=== PATIENT | female | born 1985 | race Caucasian/White ===

== ENCOUNTER 2018-03-25 18:17 | Observation (INO) | payer MEDICAID ==
[~2018-03-25] VITALS: Ht 154.9 cm; Wt 78.0 kg
[2018-03-25] MEDS ORDERED: PNV1TABL76 MT (18:41)
[2018-03-25] MEDS ORDERED: FOLI-43 MT (18:41)
[2018-03-25] MEDS ORDERED: ONDANSETRON HCL 4MG/2ML VIAL IV NR (19:50)
[2018-03-25] MEDS ORDERED: LACTATED RINGERS 1,000 ML IV SCH (20:00)
== END 2018-03-25 20:47 | disposition home or self-care (01) ==
LOC: L&D 18:17
PROVIDERS: ADMIT Obstetrics & Gynecology; ATTEND Obstetrics & Gynecology
DX: O21.2 Late vomiting of pregnancy (principal); O26.892 Other specified pregnancy related conditions, second trimester; R10.9 Unspecified abdominal pain; Z3A.21 21 weeks gestation of pregnancy
CPT/HCPCS: 96374; G0378; J2405; J7120; 96360; 96365; 99281

== ENCOUNTER 2018-07-31 09:58 | Observation (INO) | payer OTHER ==
[~2018-07-31 09:58] MED LIST: FERR325T6 MT; FOLI-43 MT; PNV1TABL76 MT
== END 2018-07-31 11:00 | disposition left against medical advice (07) ==
LOC: L&D 09:58
PROVIDERS: ADMIT Obstetrics & Gynecology; ATTEND Obstetrics & Gynecology
DX: O62.9 Abnormality of forces of labor, unspecified (principal); O48.0 Post-term pregnancy; Z3A.40 40 weeks gestation of pregnancy
CPT/HCPCS: 99281; G0378; J7120

== ENCOUNTER 2018-08-01 02:27 | Inpatient (IN) | payer OTHER ==
[~2018-08-01] VITALS: Ht 154.9 cm; Wt 104.3 kg
[2018-08-01] MEDS ORDERED: DEXT 5%/LR + PITOCIN 20UNITS/L 1,000 ML IV SCH ×2 (02:51→11:15)
[2018-08-01] MEDS ORDERED: METHYLERGONOVINE MALEATE 0.2 MG/ML IM PRN (03:00)
[2018-08-01] MEDS ORDERED: TERBUTALINE SULFATE 1MG/ML VIAL SUBCUT ONE (03:00)
[2018-08-01] MEDS ORDERED: NALOXONE HCL 0.4 MG/ML 1ML VIAL IM PRN (03:00)
[2018-08-01] MEDS: LACTATED RINGERS 1,000 ML IV SCH ×3 (03:10→08:22)
[2018-08-01 03:35] LABS: CLARITY URINE CLOUDY (CLEAR); COLOR URINE YELLOW (YELLOW); KETONES URINE NEGATIVE (NEGATIVE); LEUKOCYTE ESTERASE URINE 2+ (NEGATIVE); NITRITE URINE NEGATIVE (NEGATIVE); OCCULT BLOOD URINE 1+ (NEGATIVE); PROTEIN URINE TRACE (NEGATIVE); SPECIFIC GRAVITY URINE 1.018 (1.005-1.030)
[2018-08-01 03:36] LABS: BASOPHILS % 0.2 % (0.0-2.0); EOSINOPHILS % 0.4 % (0.0-5.0); HEMATOCRIT. 33.1 % (36.0-48.0); HEMOGLOBIN. 10.8 g/dL (12.0-16.0); LYMPHOCYTES % 15.5 % (20.0-50.0); MEAN CORPUSCULAR HEMOGLOBIN 29.4 pg (28.0-32.0); MEAN CORPUSCULAR VOLUME 90.1 fL (81.0-99.0); MEAN PLATELET VOLUME 10.9 fl (7.4-10.4); MONOCYTES % 5.1 % (2.0-8.0); NEUTROPHILS % 78.8 % (40.0-76.0); PLATELET 199 x1000/uL (130-400); RED BLOOD CELL COUNT 3.67 mill/uL (4.2-5.4); RED CELL DISTRIBUTION WIDTH 15.7 % (11.6-14.6)
[2018-08-01 03:43] LABS: PROTHROMBIN TIME 9.6 sec (9.1-11.1)
[2018-08-01 03:52] LABS: *AMPHETAMINES SCREEN URINE NEGATIVE (NEGATIVE); *BARBITURATES SCREEN URINE NEGATIVE (NEGATIVE); *BENZODIAZEPINES SCREEN URINE NEGATIVE (NEGATIVE); *COCAINE SCREEN URINE NEGATIVE (NEGATIVE); METHADONE URINE SCREEN NEGATIVE (NEGATIVE)
[2018-08-01 03:53] LABS: CANNABINOID URINE SCREEN NEGATIVE (NEGATIVE); OPIATES URINE SCREEN NEGATIVE (NEGATIVE); PHENCYCLIDINE URINE SCREEN NEGATIVE (NEGATIVE)
[2018-08-01] MEDS: TERBUTALINE SULFATE 1MG/ML VIAL SUBCUT PRN ×2 (03:54→04:24)
[2018-08-01 07:01] LABS: HEPATITIS B SURFACE ANTIGEN NEGATIVE; RUBELLA IGG 213.8 IU/mL (4.99-10)
[2018-08-01] MEDS ORDERED: CITRIC ACID/SODIUM CITRATE SOLN 30ML UDC PO NR (07:30)
[2018-08-01] MEDS ORDERED: FENTANYL CITRATE/PF 50MCG/ML 2ML VIAL ONE (07:43)
[2018-08-01] MEDS ORDERED: MORPHINE SULFATE/PF 1MG/ML 10ML AMP ONE (07:43)
[2018-08-01] MEDS ORDERED: CLINDAMYCIN 900 MG in DEXTROSE 5% WATER 50 ML IV SCH (08:45)
[2018-08-01] MEDS ORDERED: LIDOCAINE HCL/PF 2% 20MG/ML 5 ML/VIAL ONE (10:19)
[2018-08-01] MEDS ORDERED: OXYTOCIN 10 UNITS/ML 1ML ONE (10:43)
[2018-08-01] MEDS ORDERED: PHENYLEPHRINE HCL 10 MG/ML 1ML (IV VIAL) IV ONE (10:43)
[2018-08-01] MEDS ORDERED: EPHEDRINE SULFATE 50MG/ML VIAL ONE (10:43)
[2018-08-01] MEDS ORDERED: GLYCOPYRROLATE 0.2 MG/ML 2ML VIAL ONE (10:43)
[2018-08-01] MEDS ORDERED: ONDANSETRON HCL 4MG/2ML INJ ONE (10:43)
[2018-08-01] MEDS ORDERED: MIDAZOLAM HCL 2 MG/2 ML VIAL ONE (10:55)
[2018-08-01] MEDS ORDERED: KETAMINE HCL 50 MG/ML 10ML ONE (11:00)
[2018-08-01] MEDS ORDERED: ONDANSETRON HCL 4MG/2ML INJ IV PRN (11:15)
[2018-08-01] MEDS ORDERED: HYDROCODONE/ACETAMINOPHEN 5/325MG TABLET PO PRN (11:15)
[2018-08-01] MEDS ORDERED: HEMORRHOIDAL SUPP PR PRN (11:15)
[2018-08-01] MEDS ORDERED: KETOROLAC 60MG/2ML VIAL IM ONE (11:32)
[2018-08-01] MEDS ORDERED: DIPHENHYDRAMINE 50MG/ML VIAL IV PRN (11:45)
[2018-08-01] MEDS ORDERED: BUTORPHANOL TARTRATE 2 MG/ML VIAL IV PRN (11:45)
[2018-08-01] MEDS ORDERED: NALOXONE HCL 0.4 MG/ML 1ML VIAL IV PRN (11:45)
[2018-08-01 14:35] VITALS: BP 112/66
[2018-08-01 15:05] VITALS: BP 115/63
[2018-08-01] MEDS: MAGNESIUM/ALUMINUM HYDROXIDE/SIMETHICONE 30ML UDC PO SCH ×2 (17:00→21:00)
[2018-08-01] MEDS: SIMETHICONE 80MG TABLET CHEW PO SCH ×2 (17:00→21:00)
[2018-08-01] MEDS: CLINDAMYCIN 600MG PREMIX 50 ML IV SCH (17:17)
[2018-08-01 17:30] VITALS: BP 110/68
[2018-08-01 20:00] VITALS: BP 112/53
[2018-08-01] MEDS ORDERED: DIPHENHYDRAMINE 25MG CAPSULE PO PRN (21:00)
[2018-08-01] MEDS: KETOROLAC 30MG/ML VIAL IV PRN (23:12)
[2018-08-02] VITALS (9 sets, daily range): BP systolic 100–130; BP diastolic 54–81
[2018-08-02] MEDS: CLINDAMYCIN 600MG PREMIX 50 ML IV SCH (01:13)
[2018-08-02] MEDS: SIMETHICONE 80MG TABLET CHEW PO SCH ×4 (08:14→21:00)
[2018-08-02] MEDS: MAGNESIUM/ALUMINUM HYDROXIDE/SIMETHICONE 30ML UDC PO SCH ×4 (08:14→21:23)
[2018-08-02] MEDS: KETOROLAC 30MG/ML VIAL IV PRN (08:18)
[2018-08-02] MEDS: PRENATAL VIT/FE FUMARATE/FA TABLET PO SCH (08:19)
[2018-08-02 09:40] LABS: BASOPHILS % 0.2 % (0.0-2.0); EOSINOPHILS % 0.8 % (0.0-5.0); HEMATOCRIT. 22.9 % (36.0-48.0); HEMOGLOBIN. 7.7 g/dL (12.0-16.0); LYMPHOCYTES % 15.1 % (20.0-50.0); MEAN CORPUSCULAR HEMOGLOBIN 30.3 pg (28.0-32.0); MEAN CORPUSCULAR VOLUME 90.6 fL (81.0-99.0); MEAN PLATELET VOLUME 10.6 fl (7.4-10.4); MONOCYTES % 5.6 % (2.0-8.0); NEUTROPHILS % 78.3 % (40.0-76.0); PLATELET 169 x1000/uL (130-400); RED BLOOD CELL COUNT 2.53 mill/uL (4.2-5.4)
[2018-08-02] MEDS: ACETAMINOPHEN WITH CODEINE 300/30MG TABLET PO PRN ×3 (11:53→21:33)
[2018-08-02] MEDS: FERROUS SULFATE 325MG TABLET PO SCH ×2 (12:03→16:35)
[2018-08-02] MEDS ORDERED: LANOLIN OINT 0.25 GM TUBE TOP PRN (23:30)
[2018-08-03] VITALS: BP 129/66
[2018-08-03] MEDS: ACETAMINOPHEN WITH CODEINE 300/30MG TABLET PO PRN ×3 (02:32→16:09)
[2018-08-03 04:00] VITALS: BP 125/75
[2018-08-03 07:56] VITALS: BP 124/70
[2018-08-03] MEDS: FERROUS SULFATE 325MG TABLET PO SCH ×3 (09:00→17:00)
[2018-08-03] MEDS: MAGNESIUM/ALUMINUM HYDROXIDE/SIMETHICONE 30ML UDC PO SCH ×4 (09:20→21:26)
[2018-08-03] MEDS: PRENATAL VIT/FE FUMARATE/FA TABLET PO SCH (09:20)
[2018-08-03] MEDS: SIMETHICONE 80MG TABLET CHEW PO SCH ×4 (09:20→21:25)
[2018-08-03 16:00] VITALS: BP 124/73
[2018-08-03 19:35] VITALS: BP 124/74
[2018-08-03] MEDS: IBUPROFEN 400MG TABLET PO PRN (19:59)
[2018-08-04] VITALS: BP 110/64
[2018-08-04 08:22] VITALS: BP 128/78
[2018-08-04 08:43] VITALS: BP 128/78
[2018-08-04] MEDS: FERROUS SULFATE 325MG TABLET PO SCH (11:25)
[2018-08-04] MEDS: PRENATAL VIT/FE FUMARATE/FA TABLET PO SCH (11:25)
[2018-08-04] MEDS: SIMETHICONE 80MG TABLET CHEW PO SCH (11:26)
[2018-08-04] MEDS: IBUPROFEN 400MG TABLET PO PRN (11:26)
== END 2018-08-04 11:45 | disposition home or self-care (01) | DRG 540 ==
LOC: L&D 02:27 → OBSVTOIN 02:27 → 7EST PP/OB 14:50
PROVIDERS: ADMIT Obstetrics & Gynecology; ATTEND Obstetrics & Gynecology
PROC: 10D00Z1 Extraction of Products of Conception, Low, Open Approach (ICD-10-PCS; principal; 2018-08-01 11:30)
DX: O34.211 Maternal care for low transverse scar from previous cesarean delivery (principal); Z37.0 Single live birth; Z88.1 Allergy status to other antibiotic agents; Z91.013 Allergy to seafood; Z91.040 Latex allergy status; Z3A.40 40 weeks gestation of pregnancy
CPT/HCPCS: 36415; 80305; 81003; 85025; 85610; 85730; 86592; 86703; 86762; 86850; 86900; 87340; 88307; 99281; J1200; J1885; J2250; J2274; J2370; J2405; J2590; J3010; J3105; J3490; J7060; J7120; A4315

== ENCOUNTER 2022-05-03 01:14 | Emergency (ER) | payer OTHER ==
[~2022-05-03] VITALS: Ht 154.9 cm; Wt 90.6 kg
[~2022-05-03 01:14] MED LIST changes: -FERR325T6 MT; -FOLI-43 MT
[2022-05-03] MEDS ORDERED: HYDROCODONE/ACETAMINOPHEN 10/325MG TABLET PO ONE (02:15)
[2022-05-03] MEDS ORDERED: IBUP-2029 MT (05:00)
[2022-05-03 05:20] VITALS: BP 116/54
== END 2022-05-03 05:25 | disposition home or self-care (01) ==
LOC: ER 01:14
DX: S63.91XA Sprain of unspecified part of right wrist and hand, initial encounter (principal); W01.0XXA Fall on same level from slipping, tripping and stumbling without subsequent striking against object, initial encounter; Y93.89 Activity, other specified; Y92.89 Other specified places as the place of occurrence of the external cause; Y99.0 Civilian activity done for income or pay
CPT/HCPCS: 73110; 73130; 73200; 99284

== ENCOUNTER 2023-09-05 16:42 | Emergency (ER) | payer OTHER ==
[~2023-09-05] VITALS: Ht 154.9 cm; Wt 91.0 kg
[~2023-09-05 16:42] MED LIST changes: +IBUP-2029 MT
[2023-09-05] MEDS ORDERED: ONDANSETRON 4MG ODT PO ONE (18:00)
[2023-09-05] MEDS ORDERED: ACETAMINOPHEN 325MG TABLET PO ONE (18:00)
[2023-09-05] MEDS ORDERED: ONDANSETRON 4MG ODT PO NR (21:03)
[2023-09-05] MEDS ORDERED: ACETAMINOPHEN 325MG TABLET PO NR (21:03)
[2023-09-05] MEDS ORDERED: ONDA4TAB50 MT (22:23)
[2023-09-05] MEDS ORDERED: TOPUD MT (22:23)
[2023-09-05] MEDS ORDERED: IBUP-1523 MT (22:23)
[2023-09-06 00:46] VITALS: BP 136/76; PULSE 56; RESP 16; TEMP 97.9
== END 2023-09-06 00:50 | disposition home or self-care (01) ==
LOC: ER 16:42 → EDBEDREQ 18:25 → ER 09-06 00:50
DX: S06.0X0A Concussion without loss of consciousness, initial encounter (principal); Z91.013 Allergy to seafood; Z90.49 Acquired absence of other specified parts of digestive tract; Z98.890 Other specified postprocedural states; Y08.89XA Assault by other specified means, initial encounter; Y93.89 Activity, other specified; Y92.89 Other specified places as the place of occurrence of the external cause; Y99.8 Other external cause status
CPT/HCPCS: 99284; 70450; Q0162

== ENCOUNTER 2024-04-02 10:21 | Emergency (ER) | payer MEDICAID, OTHER ==
[~2024-04-02] VITALS: Ht 154.9 cm; Wt 82.0 kg
[~2024-04-02 10:21] MED LIST changes: +IBUP-1523 MT; +ONDA4TAB50 MT; +TOPUD MT
[2024-04-02 10:29] VITALS: BP 122/73; PULSE 80; RESP 12; TEMP 98.3; O2SAT 98
[2024-04-02] MEDS ORDERED: IBUP-2029 MT (13:22)
== END 2024-04-02 13:49 | disposition home or self-care (01) ==
LOC: ER 10:21
DX: S09.90XA Unspecified injury of head, initial encounter (principal); Z91.013 Allergy to seafood; Z91.040 Latex allergy status; Y04.0XXA Assault by unarmed brawl or fight, initial encounter; Y93.89 Activity, other specified; Y92.89 Other specified places as the place of occurrence of the external cause; Y99.8 Other external cause status
CPT/HCPCS: 70486; 81025; 99284